=== PATIENT | male | born 1980 | race Two or more races ===

== ENCOUNTER → 2025-01-27 | Outpatient (CLI) | payer OTHER, SELFPAY ==
--- NOTE | 2025-01-27 | XR_ITS ---
Examination: CT lumbar spine, without contrast. 2-D sagittal reconstructions. 2-D coronal reconstructions. 3-D reconstructions. Date and time of exam:January 27, 2025 0804 hours INDICATIONS: Low back pain beginning 5 years ago CTDI: vol (mGy):31.6 DLP: (mGycm):889 Technique: Multiple 1.25 mm axial sections of the lumbar spine without intravenous contrast. have been obtained. 2-D sagittal and coronal reconstructions have been obtained. 3-D reconstructions have been obtained. Low dose protocols were performed. One or more of the following dose reduction techniques were used; automated exposure control, adjustment of the mA and/or KV according to patient size, use of iterative reconstruction technique. Findings: Moderate osteopenia. No lumbar vertebral body compression fracture Moderate to advanced degenerative disc disease L4-L5 Lumbar pedicles, laminae, transverse and posterior spinous processes intact L5-S1 2 mm central lumbar disc bulge L4-L5 moderate overall spinal stenosis, 5 mm calcified central lumbar disc bulge, prominent facet arthropathy and thickening of ligamentum flavum with severe right L4 ganglionic compression L3-L4 no disc protrusion L2-L3 no disc protrusion L1-2 no disc protrusion IMPRESSION: Moderate to advanced degenerative disc disease L4-L5 L4-L5 moderate overall spinal stenosis, 5 mm calcified central lumbar disc bulge with severe right L4 ganglionic compression
== END | disposition home or self-care (01) ==
LOC: CCTX 07:34
PROVIDERS: PCP Family Medicine; Referring Provider Family Medicine; Visit Provider Family Medicine
DX: M51.360 Other intervertebral disc degeneration, lumbar region with discogenic back pain only (principal); G95.20 Unspecified cord compression; M51.86 Other intervertebral disc disorders, lumbar region
CPT/HCPCS: 72131

== ENCOUNTER → 2025-02-18 | Outpatient (CLI) | payer OTHER, SELFPAY ==
[2025-02-18 17:54] LABS: Amphetamine/Methamp Scrn,U Negative (Negative); Barbiturate Screen,Urine Negative (Negative); Benzodiazepines Screen,Urine Negative (Negative); Benzoylecgonine Screen, Ur Negative (Negative); Fentanyl Screen,Urine Negative (Negative); Opiate Screen,Urine Positive (Negative); THC Screen,Urine Negative (Negative)
== END | disposition home or self-care (01) ==
LOC: COPL 16:38
PROVIDERS: Referring Provider Family Medicine; Visit Provider Family Medicine
DX: M51.362 Other intervertebral disc degeneration, lumbar region with discogenic back pain and lower extremity pain (principal)
CPT/HCPCS: 80307